=== PATIENT | female | born 1960 | race Caucasian/White ===

== ENCOUNTER 2016-12-24 11:26 | Emergency (ER) | payer OTHER ==
[~2016-12-24] VITALS: Ht 162.6 cm; Wt 80.0 kg
[2016-12-24 11:27] VITALS: BP 160/72; PULSE 110; RESP 20; TEMP 97.7; O2SAT 96
[2016-12-24] MEDS ORDERED: INSULIN HUMAN NPH/R 70/30 1,000 UNITS/10 ML VIAL SQ ONE (11:45)
[2016-12-24] MEDS ORDERED: HUMA75IN SQ (11:50)
--- NOTE | 2016-12-24 11:51 | PD ---
HPI Chief Complaint: Medication Refill Request Time Seen by Provider: 11:38 Travel History International Travel<30 days: No Contact w/Intl Traveler<30days: No Traveled to known affect area: No History of Present Illness HPI The patient is a 56-year-old female who presents to the emergency department for hyperglycemia and medication refill. The patient has a history of diabetes for which she takes metformin, Victoza, and insulin 75/25. The patient normally takes insulin 75/25, 50 units twice a day. The patient was previously on 70 units twice a day, but they decreased her dose. The patient states she ran out of her insulin and called her primary physician, Dr. Sims, but unable to get a hold of her for the last 3 days. The patient is seeking a medication refill. She denies any generalized weakness, dysuria, frequency, urgency, polyuria, polyphagia, or polydipsia. The patient's blood sugar in triage was 276. However, she does know she is not been eating much because she has been out of her insulin. [facility] Past Medical History Diabetes: Yes ?: Not Past Surgical History Hysterectomy: Yes Social History Tobacco Use: No Allergies-Medications (Allergen,Severity, Reaction): Coded Allergies: No Known Allergies (Unverified , 12/24/16) Review of Systems Except as stated in HPI: all other systems reviewed are Neg Cardiovascular: No: Chest Pain or Discomfort Respiratory: No: Shortness of Breath Gastrointestinal: No: Nausea, Vomiting, Abdominal Pain Neurologic: No: Weakness Endocrine: No: Polyuria, Polydipsia Physical Exam Narrative GENERAL: Awake, alert, pleasant 56-year-old female who appears her stated age and is in no acute respiratory distress. SKIN: Focused skin assessment warm/dry. HEAD: Atraumatic. Normocephalic. EYES: No injection or drainage. ENT: No nasal bleeding or discharge. Mucous membranes pink and moist. NECK: Trachea midline. No JVD. CARDIOVASCULAR: Regular rate and rhythm. No murmur appreciated. RESPIRATORY: No accessory muscle use. Clear to auscultation. Breath sounds equal bilaterally. MUSCULOSKELETAL: No obvious deformities. No clubbing. No cyanosis. No edema. NEUROLOGICAL: Awake and alert. No obvious cranial nerve deficits. Motor grossly within normal limits. Normal speech. PSYCHIATRIC: Appropriate mood and affect; insight and judgment normal. Data Data Last Documented VS Vital Signs Date Time Temp Pulse Resp B/P (MAP) Pulse Ox O2 Delivery O2 Flow Rate FiO2 12/24/16 11:27 97.7 110 20 160/72 (101) 96 Room Air Orders Orders Insulin Human Nph/R 70/30 Inj (Novolin 7 (12/24/16 11:45) MDM Medical Decision Making Medical Screen Exam Complete: Yes Emergency Medical Condition: Yes Medical Record Reviewed: Yes Differential Diagnosis Differential diagnosis includes medication refill, insulin-dependent diabetic, noncompliance, hyperglycemia, DKA, dehydration. Narrative Course The patient has been out of her insulin for the last 3 days, is unable to get a hold of her primary physician for refill of medications and she states the pharmacy will not give her the medications because they recently changed her dose. She normally takes insulin 75/25, 50 units twice a day. The patient's currently asymptomatic, will be administered a dose of insulin 70/30 50 units and prescribed her normal dose of insulin. She is advised to return if symptoms worsen or progress. Diagnosis Primary Impression: Medication refill Additional Impressions: Hyperglycemia Diabetes Qualified Codes: E13.9 - Other specified diabetes mellitus without complications; Z79.4 - jail (current) use of insulin Patient Instructions: General Instructions Med/Other Pt SpecificInfo: Prescription(s) given Scripts Insulin Lispro Protamine-Lispro 75-25 Inj (Humalog Mix 75-25 Kwikpen Pen Inj) 300 unit/3 ML Pen 50 UNITS SQ BID for Blood Sugar Management, #1 PEN 3 Refills Prov: Obinna Martinez MD 12/24/16 Disposition: 01 DISCHARGE HOME Condition: Stable Obinna Martinez MD Dec 24, 2016 11:51
== END 2016-12-24 11:56 | disposition home or self-care (01) ==
LOC: NEPD 11:26
DX: E11.65 Type 2 diabetes mellitus with hyperglycemia (principal); Z76.0 Encounter for issue of repeat prescription
CPT/HCPCS: 96372; 99284; J1815